=== PATIENT | female | born 1990 | race Caucasian/White ===

== ENCOUNTER 2017-03-28 11:01 | Inpatient (IN) | payer OTHER ==
[~2017-03-28] VITALS: Ht 154.9 cm; Wt 85.7 kg
[~2017-03-28 11:01] MED LIST: ALKA-SELTZER G1 EACH PO; NORGESTIMATE-E1 EAC1; PRILOSEC20 MG PO; Vicodin,Norco 5/325 PO; ZANTAC150 MG PO
[2017-03-28 11:15] VITALS: BP 133/65
[2017-03-28] MEDS ORDERED: PRENATAL MULTI1 EAC7 PO (11:26)
[2017-03-28 12:39] LABS: EOSINOPHIL (%) 0.6 % (0-5); EOSINOPHIL COUNT 0.1 K/uL (0-0.3); HEMATOCRIT 38.1 % (36.0-46.0); IMMATURE GRANULOCYTE (%) 0.6 % (0.0-0.7); IMMATURE GRANULOCYTE COUNT 0.1 K/uL; INSTRUMENT ABS NEUTROPHIL CT 6.9 K/uL; LYMPHOCYTE COUNT 2.1 K/uL (1.0-2.8); MCH 29.5 PG (29.0-34.0); MCHC 33.6 G/DL (30.0-36.0); MCV 87.8 FL (83-99); MEAN PLAT.VOLUME 11.5 uM^3 (9.5-12.4); MONOCYTE (%) 6.8 % (3-12); MONOCYTE COUNT 0.7 K/uL (0-0.8); NEUTROPHIL (%) 70.4 % (45-76); NEUTROPHIL COUNT 6.9 K/uL (1.8-6.4); PLATELET COUNT 189 K/uL (156-360); RBC DIS.WIDTH-CV 12.6 % (11.8-14.6); RBC DIS.WIDTH-SD 40.5 % (39-53); RED BLOOD COUNT 4.34 M/uL (3.80-5.20); WHITE BLOOD COUNT 9.9 K/uL (4.1-10.2)
[2017-03-28 12:53] VITALS: BP 123/63
[2017-03-28 13:03] LABS: ALKALINE PHOSPHATASE 182 IU/L (3-129); ANION GAP 8 MEQ/L (2-14); CHLORIDE 105 MEQ/L (99-109); GFR ESTIMATE (CALCULATED) > 59 mL/min/; GLUCOSE 71 mg/dL (70-99); LACTATE DEHYDROGENASE 462 IU/L (20-246); SAMPLE HEMOLYSIS CHECK 0; SAMPLE ICTERIC CHECK 0; SAMPLE LIPEMIA CHECK 0; SODIUM 134 MEQ/L (136-147); TOTAL BILIRUBIN 0.2 MG/DL (0.0-1.0); UREA NITROGEN (BUN) 9 mg/dL (9-23)
[2017-03-28 13:56] LABS: UR CREATININE CONCENTRATION 132.8 MG/DL
[2017-03-28 16:08] VITALS: BP 87/51
[2017-03-28 18:13] VITALS: BP 100/51
[2017-03-28 23:29] VITALS: BP 88/46
[2017-03-29] VITALS (12 sets, daily range): BP systolic 105–128; BP diastolic 51–75
[2017-03-29 16:32] LABS: DRSB INTERNAL CONTROL PASS; PROBE CHECK PASS; SPECIMEN PROCESSING CONTROL PASS
[2017-03-30] VITALS (9 sets, daily range): BP systolic 107–155; BP diastolic 57–84
[2017-03-30] MEDS ORDERED: IBUPROFEN800 MG PO (08:20)
[2017-03-31 00:15] VITALS: BP 130/69
[2017-03-31 16:05] VITALS: BP 101/62
[2017-04-01 07:46] VITALS: BP 122/79
== END 2017-04-01 14:07 | disposition home or self-care (01) | DRG 775 ==
LOC: LDRP-OP 11:01 → 2WEST 11:03 → LDRP-OP 05-23 11:33
PROVIDERS: Obstetrics & Gynecology; Obstetrics & Gynecology Obstetrics
DX: O41.03X0 Oligohydramnios, third trimester, not applicable or unspecified (principal); O60.14X0 Preterm labor third trimester with preterm delivery third trimester, not applicable or unspecified; O76 Abnormality in fetal heart rate and rhythm complicating labor and delivery; O36.5930 Maternal care for other known or suspected poor fetal growth, third trimester, not applicable or unspecified; Z3A.36 36 weeks gestation of pregnancy; Z37.0 Single live birth; Z87.891 Personal history of nicotine dependence
CPT/HCPCS: 76818; 80053; 82570; 83615; 84156; 85025; 87653; 88307; C1755; G0378; J0702; J2590; J3105; J7120